=== PATIENT | female | born 1980 | race Two or more races ===

== ENCOUNTER 2016-07-16 16:58 | Emergency (ER) | payer OTHER ==
[~2016-07-16] VITALS: Ht 152.4 cm; Wt 68.2 kg
[2016-07-16 17:08] VITALS: BP 110/70; PULSE 87; RESP 16; O2SAT 96
--- NOTE | 2016-07-16 18:33 | ED.REPORT ---
HPI-Extremity Problem Lower Date of Service Jul 16, 2016 ED Provider: Pradip Mayfield MD Pt is a 36 y.o. female with a hx of DM who presents to the ED c/o left knee pain onset 6 days ago. Pt states that she was seen at [facility] on 07/12/16 for her pain, she was placed in a knee immobilizer. She states that last night she experienced no relief for her pain even after taking muscle relaxers and ibuprofen.The pt describes her pain as crampy and with a burning sensation to the inside of her left knee, the pain radiates to her left leg and foot with associated tingling sensation. She also reports intermittent swelling towards the inside of her left knee. She denies any injury or trauma to her knee. She also denies back pain, fever, and weakness. Pt states she experienced 10-15 seconds of shooting chest pain last night. Nursing Notes Stated Complaint: L KNEE NUMB/PAIN Chief Complaint: Extremity Trauma Nursing Notes Reviewed: Yes ([email or web address], [employer] not reconciled) Allergies: Uncoded Allergies: T3 (Allergy, Intermediate, emesis, 07/16/16) Scheduled PRN Hydrocodone-Acetaminophen 5-325 mg (Hydrocodone-Acetaminophen 5-325 mg) 1 Each Tablet 1-2 TABLET PO TID PRN PRN For Pain General Time Seen by MD: 18:31 Chief Complaint Knee injury left Hx Obtained From: Patient Arrived By: Walk-in Onset Occurred: 6 days ago Symptom Duration: Since onset Location: : Knee left: Leg left Quality: Painful Severity: Current: Severe Recent Healthcare: Recent doctor visit Past Medical History Past Medical History Anxiety Arthritis DM HLD Past Surgical History Reduction mammaplasty Hysterectomy Cholecystectomy Urethra surgery Bladder repair Review of Systems Constitutional: Denies: Fever Musculoskeletal: Reports: Extremity pain (Left leg), Joint pain (Left knee), Joint swelling (Left knee), Denies: Back pain Neurologic: Denies: Weakness Complete sys rev & neg: except as marked. Cardiovascular: Reports: Chest pain Physical Exam Initial Vital Signs Vital Signs (First) Date Time Temp Pulse Resp B/P Pulse Ox O2 Delivery O2 Flow Rate FiO2 07/16/16 17:08 36.8 87 16 110/70 96 Room Air Initial VS: Reviewed, Vital signs normal Head / Eyes: Atraumatic, Normocephalic Abdomen / GI: No distention Upper Extremities: Vascular intact, Neuro intact Skin: Warm, Dry, No cyanosis Neurologic: Alert, Oriented, Nonfocal Psychiatric: Mood/affect normal, Behavior normal, Normal thought content Lower Extremity / Pelvis / MS: Atraumatic, No deformity, Neurologic intact, Vascular intact Left Knee: Positive: ROM painful, ROM reduced, Negative: Erythema present, Warmth present Did not appreaciate an effusion Left leg is extremely tender with the lightes touch No signs of trauma Ankle / Foot: Atraumatic, Inspection NL, No deformity, Neurologic intact, Vascular intact General/Constitutional: Awake, Alert, Well appearing, Well developed, Well hydrated, Well nourished, Not toxic appearing Appearance / Presentation: Positive: Uncomfortable Respiratory / Chest: Atraumatic, Breath sounds NL, Breath sounds = bilat, No respiratory distress, No rales, No rhonchi, No wheezing, No retractions, No stridor Cardiovascular: Heart rate NL, Regular rhythm, Heart sounds NL, No gallop, No murmurs, No rubs, Peripheral circulation NL Interpretation & Diagnostics Lab Results Interpretation Result Diagram: 07/16/16211107/16/162111 Test 07/16/16 21:12 White Blood Count 10.9th/mm3 (3.8-10.1) Red Blood Count 4.42mil/mm3 (3.90-5.20) Hemoglobin 12.8g/dL (12.0-15.6) Hematocrit 38.8% (35.0-46.0) Mean Corpuscular Volume 87.8fL (81-100) Mean Corpuscular Hemoglobin 29.0pg (27.0-35.0) Mean Corpuscular Hemoglobin Concent 33.0% (32.0-37.0) Red Cell Distribution Width 14.6% (12.3-15.4) Platelet Count 329bil/L (150-400) Neutrophils (%) (Auto) 60.0% (40-74) Lymphocytes (%) (Auto) 34.0% (14-46) Monocytes (%) (Auto) 4.3% (4-12) Eosinophils (%) (Auto) 1.0% (0-5) Basophils (%) (Auto) 0.5% (0-3) Erythrocyte Sedimentation Rate 18mm/hr (0-32) Sodium Level 139mEq/L (134-144) Potassium Level 4.2mEq/L (3.5-5.2) Chloride Level 103mEq/L (97-108) Carbon Dioxide Level 22mmol/L (18-29) Blood Urea Nitrogen 10mg/dL (6-20) Creatinine 0.76mg/dL (0.57-1.00) Estimat Glomerular Filtration Rate 122mL/min (>59) Glucose Level 130mg/dL (60-99) Calcium Level 9.2mg/dL (8.5-10.1) Total Bilirubin 0.2mg/dL (0.0-1.2) Aspartate Amino Transf (AST/SGOT) 16U/L (0-50) Alanine Aminotransferase (ALT/SGPT) 12U/L (0-32) Alkaline Phosphatase 118U/L (25-150) Total Creatine Kinase 82U/L (21-215) Total Protein 7.5g/dL (6.4-8.4) Albumin 3.9g/dL (3.4-5.0) Lab Results Interpretation: CBC normal CMP normal CPK normal X-Ray Interpretation Xray Interpretation: Performed at [facility] IMPRESSION: No fracture Electronically signed by: Davis Malhotra MD 07/12/2016 5:09 PM X-Ray Ordered: Knee left US Soft Tissue/Musculoskeletal IMPRESSION: No deep vein thrombosis of the left lower extremity. Dictated by: Lakia Menjivar M.D. on 07/16/2016 at 19:44 Approved by: Lakia Menjivar M.D. on 07/16/2016 at 19:44 Re-Eval/Medical Decision Med Decision/Clinical Course This is a 36-year-old generally healthy female presents with acute onset of severe left leg pain from the mid thigh through the calf that i persistent and severe. She reports no trauma. She was seen at [facility] and a negative x-ray of the knee, has been taking ibuprofen and using a splint but still having terrible pain. She is not have fevers chills, she has not had any significant leg swelling and she felt middle part of her knee was slightly swollen. This been no redness, fevers. She has similar symptoms. Her only DVT risk is exogenous estrogen use. She has normal vitals and appears well. However on exam even light touch anywhere on the thigh, knee, leg results in severe pain., Gaits are physical exam, the leg to external appearance appears normal-I do not appreciate visible signs of edema or swelling. There is no warmth of cellulitis or active infection. There is no effusion of the knee. She will not permit me to range of motion her knee, but again has severe tenderness even light touch to the calf. There are good distal pulses both DP and PT. The rest of her exam is normal. Records were obtained from [facility] confirm the x-ray was negative. Her presentation today is an unusual, and overt cause of such profound pains unclear. A duplex ultrasound was obtained was negative. The patient received to hydrocodone and is improved, still has marked tenderness and only marginal range of motion. It is unclear to me what is causing such severe pain to the patient. At this point the patient's appropriately concerned, and so discussed obtaining some screening labs evaluate for rhabdomyolysis and other causes. She will order labs, and then learned that the patient was frustrated and tired of waiting in the emergency department labs have not yet been drawn, and attempted to low. I was able to get her to allow us to get the labs to be drawn. They ultimately returned normal no evidence of rhabdomyolysis or other clear cause. And I did write a prescription for a few hydrocodone and was able to provide a referral to the orthopedist given that I do not know the exact cause of such severe pain. The patient is discharged in stable condition Source of Hx: Old records Re-Evaluation/Progress : Time of Eval: 20:23 Patient Status: Mild relief Re-Evaluation/Progress Note: Pt rechecked. Discussed US results. Pt has increased ROM and has minimal relief. Differential Diagnosis: Negative: Abscess, Achilles tendon rupture, Ankle dislocation, Arterial occlus/ischemia, Cellulitis, Compartment syndrome, Knee disloc ant, Knee disloc post, Knee effusion, Open fracture, Paronychia, Puncture wound, Subungual hematoma, Superficial thrombophleb, Tibia distal fracture, Tibial shaft fracture, Venous thromboembolism Counseled Regarding: Diagnosis, Lab results, Need for follow-up, When/why to return to ED Discharge & Departure Impression: Primary Impression: Leg pain Laterality: left Qualified Code: M79.605 - Pain in left leg Additional Impression: Leg pain, left Disposition: Home Discharge Condition All VS Reviewed: Yes Condition: Stable Additional Instructions: 1. A definitive for dangerous cause of the pain was not identified today. 2. Ultrasound did not reveal any signs of a blood clot "deep vein thrombosis". 3. Continue ibuprofen 400-800mg three times a day for pain (take with food) 4. You can take hydrocodone/APAP 5/325 1-2 tabs up to three times a day IF NEEDED for more severe pain. NOTE: This medication contains a narcotic and causes drowsiness. No driving for at least 4-6 hours after taking 5. The severity of pain, I recommend following up with orthopedist as the next step in evaluation. Call the office of Dr. Knowles to schedule an appointment. 6. Return if new or worsening symptoms or you change your mind. Referrals: [facility] (PCP) [facility] Scribe Attestation Portions of this note were transcribed by Tonie Berger. I, Dr. Mayfield personally performed the history, physical exam and medical decision-making; I reviewed and confirmed the accuracy of the information in the transcribed note. Signed by: Henry Wu, 07/16/2016 and 2113. copies to: [facility] Pradip Mayfield MD Jul 16, 2016 18:32 TONIE BERGER Jul 16, 2016 19:02
[2016-07-16] MEDS ORDERED: HYDROcodone-APAP 5-325 mg Tablet PO ONE (19:00)
--- NOTE | 2016-07-16 19:45 | DRSVH ---
PROCEDURE: US VEINOUS LEG DUPLEX UNILATERAL, LEFT INDICATIONS: L leg pain TECHNIQUE: Real-time imaging, as well as color and pulse Doppler interrogation, were performed of the lower extr emity deep veins from the inguinal ligament to the popliteal fossa. COMPARISON: None. FINDINGS: The deep veins are normally compressible, and free of intraluminal thrombus. Color and pu lse Doppler demonstrate normal phasic intraluminal flow. There is normal augmentation response to di stal compression maneuver. IMPRESSION: No deep vein thrombosis of the left lower extremity. Dictated by: Lakia Menjivar M.D. on 07/16/2016 at 19:44 Approved by: Lakia Menjivar M.D. on 07/16/2016 at 19:44
[2016-07-16] MEDS ORDERED: _HYDROcodone/APAP 5-325 mg Tablet PO PRN (20:50)
[2016-07-16] MEDS ORDERED: HYDR-4003 PO (21:09)
[2016-07-16 21:21] LABS: BASOPHILS % (AUTO) 0.5 % (0-3); MONOCYTES % (AUTO) 4.3 % (4-12); Mean Corpuscular Volume 87.8 fL (81-100); Platelet Count 329 bil/L (150-400)
[2016-07-16 21:42] LABS: ERYTHROCYTE SEDIMENTATION RATE 18 mm/hr (0-32)
== END 2016-07-16 21:25 | disposition home or self-care (01) ==
LOC: SED 16:58
DX: M79.605 Pain in left leg (principal); E11.9 Type 2 diabetes mellitus without complications; F17.200 Nicotine dependence, unspecified, uncomplicated